=== PATIENT | male | born 1955 | race Caucasian/White ===

== ENCOUNTER 2019-11-12 06:56 | Day surgery (SDC) | payer BC ==
[~2019-11-12 06:56] MED LIST: Lactated Ringers 1,000 ML IV SCH; Lidocaine 1%/Sod Bicarbonate in NS 8.4% 1 ML Syringe IDERM PRN; Sodium Chloride 0.9% 10 ML Syringe FLUSH PRN
[2019-11-12] MEDS ORDERED: Midazolam 1 MG/ML 2 ML SDV ONE (07:14)
[2019-11-12] MEDS ORDERED: Propofol 200 MG/20 ML SDV ONE ×2 (07:14→08:44)
[2019-11-12] MEDS ORDERED: Albuterol 0.083% 2.5 MG/3 ML Neb Soln NEB ONE (07:32)
--- NOTE | 2019-11-12 07:32 | PCM.PREANE ---
Preanesthetic Assessment - Anesthesia/Transfusion/Family Hx Anesthesia History: Prior Anesthesia Without Reaction Family History of Anesthesia Reaction: No Transfusion History: No Prior Transfusion(s) - Review of Systems General: No Symptoms Pulmonary: Other (asthma, current smoker [id number]) Cardiovascular: Other (HTn, heart cath 2012) Gastrointestinal: Other (GERD) Neurological: No Symptoms Other: Reports: Diabetes - Physical Assessment NPO Status Date: 11/11/19 NPO Status Time: 18:00 Weight: 126.2 kg ASA Class: 3 Mental Status: Alert & Oriented x3 Airway Class: Mallampati = 2 Dentition: Reports: Normal Dentition Thyro-Mental Finger Breadths: 3 Mouth Opening Finger Breadths: 3 ROM/Head Extension: Full Lungs: Clear to Auscultation, Normal Respiratory Effort Cardiovascular: Regular Rate, Regular Rhythm - Allergies Allergies/Adverse Reactions: Allergies Allergy/AdvReac Type Severity Reaction Status Date / Time prednisone Allergy Hives Verified 11/09/19 10:26 - Blood Blood Available: No Product(s) Available: None - Anesthesia Plan Pre-Op Medication Ordered: None - Acknowledgements Anesthesia Type Planned: MAC Pt an Appropriate Candidate for the Planned Anesthesia: Yes Alternatives and Risks of Anesthesia Discussed w Pt/Guardian: Yes Pt/Guardian Understands and Agrees with Anesthesia Plan: Yes PreAnesthesia Questionnaire HEENT History: Reports: Impaired Vision, Otitis Media, Other (See Below) Other HEENT History: wears glasses Cardiovascular History: Reports: High Cholesterol, Hypertension, Other (See Below) Other Cardiovascular History: heart catheterization in 2012 for swollen lower extremity. no abnormalities found, no stenting done. Respiratory History: Reports: Asthma Genitourinary History: Reports: Renal Calculus [employer]WORK SUPPORT ANALYST History: Reports: None Musculoskeletal History: Reports: Other (See Below) Other Musculoskeletal History: left meniscus tear, leg cramps Neurological History: Reports: None Psychiatric History: Reports: None Endocrine/Metabolic History: Reports: Diabetes, Type II Hematologic History: Reports: None Immunologic History: Reports: None Oncologic (Cancer) History: Reports: None Dermatologic History: Reports: Eczema, Other (See Below) Other Dermatologic History: left knee cellulitis - Past Surgical History Head Surgeries/Procedures: Reports: None Cardiovascular Surgical History: Reports: None Respiratory Surgical History: Reports: None GI Surgical History: Reports: Colonoscopy, EGD Female Surgical History: Reports: None Male Surgical History: Reports: None Endocrine Surgical History: Reports: None Neurological Surgical History: Reports: None Musculoskeletal Surgical History: Reports: Other (See Below) Other Musculoskeletal Surgeries/Procedures:: bilateral shoulder surgeries with hardware, left total knee replacement Oncologic Surgical History: Reports: None Dermatological Surgical History: Reports: None - SUBSTANCE USE Smoking Status *Q: Former Smoker Recreational Drug Use History: No - HOME MEDS Home Medications: Home Meds Albuterol Sulfate [Albuterol Sulfate Hfa] 2 puff INH Q4H PRN 11/09/19 [History] Budesonide [Pulmicort] 1 dose NEB QID PRN 11/09/19 [History] Codeine/Promethazine [Phenergan with Codeine] 5 ml PO Q4H PRN 11/09/19 [History] Dulaglutide [Trulicity] 0.5 ml SQ WE 11/09/19 [History] Enalapril [Vasotec] 2.5 mg PO DAILY 11/09/19 [History] Gabapentin [Neurontin] 100 mg PO DAILY 11/09/19 [History] Naproxen Sodium [Aleve] 220 mg PO BID PRN 11/09/19 [History] Omeprazole Magnesium [Prilosec Otc] 20 mg PO DAILY PRN 11/09/19 [History] Triamcinolone Acetonide [Triamcinolone Acetonide 0.1% Crm] 1 dose TOP BID [History] atorvaSTATin [Lipitor] 10 mg PO DAILY 11/09/19 [History] metFORMIN HCl [Glucophage] 1,000 mg PO BID 11/09/19 [History] traMADol [Ultram] 50 - 100 mg PO BID PRN 11/09/19 [History] - CURRENT (IN HOUSE) MEDS Current Meds: Current Medications Lactated Ringer's (Ringers, Lactated) 1,000 mls @ 125 mls/hr IV ASDIRECTED MOLINA Stop: 11/12/19 23:00 Lidocaine/Sodium Bicarbonate (Buffered Lidocaine 1% In Ns 8.4%) 0.25 ml IDERM ONETIME PRN PRN Reason: Prior to IV Start Stop: 11/12/19 18:00 Sodium Chloride (Saline Flush) 10 ml FLUSH ASDIRECTED PRN PRN Reason: Keep Vein Open Stop: 11/12/19 18:00 Discontinued Medications Midazolam HCl (Versed 1 Mg/Ml) Confirm Administered Dose 2 mg .ROUTE .STK-MED ONE Stop: 11/12/19 07:15 Propofol (Diprivan 20 Ml) Confirm Administered Dose 400 mg .ROUTE .STK-MED ONE Stop: 11/12/19 07:15
--- NOTE | 2019-11-12 09:01 | PCM48HPAN ---
Post Anesthesia Note - EVALUATION WITHIN 48HRS OF ANESTHETIC Vital Signs in Normal Range: Yes Patient Participated in Evaluation: Yes Respiratory Function Stable: Yes Airway Patent: Yes Cardiovascular Function Stable: Yes Hydration Status Stable: Yes Pain Control Satisfactory: Yes Nausea and Vomiting Control Satisfactory: Yes Mental Status Recovered: Yes Vital Signs: Last Vital Signs Temp 36.9 C 11/12/19 07:20 Pulse 74 11/12/19 07:20 Resp 18 11/12/19 07:20 BP 150/84 H 11/12/19 07:20 Pulse Ox 94 L 11/12/19 07:48
[2019-11-12 09:18] VITALS: BP 125/82; PULSE 78
--- NOTE | 2019-11-12 12:37 | OR ---
DATE OF OPERATION: 11/12/2019 SURGEON: Randall Garcia MD PREPROCEDURE DIAGNOSIS: Surveillance colonoscopy. POSTOPERATIVE DIAGNOSES: 1. Two rectal polyps, removed. 2. Extensive diverticulosis. 3. Grade 3 internal hemorrhoids. OPERATION PERFORMED: Colonoscopy with polypectomy. ESTIMATED BLOOD LOSS: Minimal. COMPLICATIONS: None immediate. INDICATIONS AND CONSENT: The patient is a 64-year-old male who underwent initial colonoscopy in 2005 where some polyps were removed. The patient was asked to follow up colonoscopy, but he has had not a chance to follow up until recently. I saw him in clinic, evaluated him for a surveillance colonoscopy. The patient was doing well otherwise with no other abdominal problems or change in bowel habits. Therefore, recommended to proceed with surveillance colonoscopy. We discussed the risks, benefits, and alternatives. Risks discussed include, but not limited to, perforation and bleeding. The patient understood and agreed to proceed with the procedure. DETAILS OF THE PROCEDURE: The patient was taken to the procedure room, placed in left lateral decubitus position. Following induction of monitored anesthesia, we began the exam with a perianal exam. Upon examination of anal opening, we saw 1 hemorrhoidal complex that was protruding through the anal canal, signifying grade 3 internal hemorrhoids. There were no fissures. Digital rectal exam was otherwise normal except for the hemorrhoids. Then, the scope was placed and advanced all the way to the cecum. The appendiceal orifice and ileocecal valve were photographed. Then, careful colonic examination was done while slowly withdrawing the colonoscope. There was scattered diverticulosis in the transverse colon and there was extensive diverticulosis in the sigmoid colon. Once we got to the rectum, we found 2 small polyps, one was about 2 mm and the other one was about 4 mm. These were removed with cold forceps for pathologic examination. Once again, upon retroflexion of the rectum, we confirmed presence of internal hemorrhoids. Then, the air was suctioned out of the colon and the colonoscope was removed. This marked the end of the procedure. EBL was minimal, and the patient was awoken up and taken to the PACU for further recovery. The patient will come back in clinic in 2 weeks to discuss pathologic results and plan for further followup. [facility] /[id number]
== END 2019-11-12 09:46 | disposition home or self-care (01) ==
LOC: JD.SDS 06:56
PROVIDERS: ATTEND Surgery
DX: Z12.11 Encounter for screening for malignant neoplasm of colon (principal); K62.1 Rectal polyp; K57.30 Diverticulosis of large intestine without perforation or abscess without bleeding; K64.8 Other hemorrhoids; K21.9 Gastro-esophageal reflux disease without esophagitis; M19.90 Unspecified osteoarthritis, unspecified site; J45.909 Unspecified asthma, uncomplicated; I10 Essential (primary) hypertension; E11.9 Type 2 diabetes mellitus without complications; E78.00 Pure hypercholesterolemia, unspecified; F17.210 Nicotine dependence, cigarettes, uncomplicated; Z79.899 Other long term (current) drug therapy; Z88.8 Allergy status to other drugs, medicaments and biological substances
CPT/HCPCS: 45380; 82962; 93005; 94640; J2250; J2704; J7120; 00812

== ENCOUNTER 2024-11-26 11:52 | Emergency (ER) | payer MEDICARE, OTHER ==
[2024-11-26] MEDS ORDERED: Sodium Chloride 0.9% 10 ML Syringe FLUSH PRN (12:17)
[2024-11-26 12:39] LABS: BASOPHILS PERCENT AUTO 0.4 % (0.0-1.0); EOSINOPHILS ABSOLUTE AUTO 0.3 K/mm3 (0.0-0.4); EOSINOPHILS PERCENT AUTO 3.1 % (0.0-6.0); HEMOGLOBIN 14.7 gm/dl (14.0-18.0); IMMATURE GRAN ABSOLUTE AUTO 0.03 K/mm3 (0.00-0.05); IMMATURE GRAN PERCENT AUTO 0.3 % (0.0-0.4); LYMPHOCYTES ABSOLUTE AUTO 2.7 K/mm3 (1.0-4.8); LYMPHOCYTES PERCENT AUTO 29.6 % (24.0-44.0); MEAN CORPUSCULAR HEMOGLOBIN 29.8 pg (28.0-32.0); MEAN CORPUSCULAR HGB CONC 32.7 g/dl (32.0-36.0); MEAN CORPUSCULAR VOLUME 91.1 fl (83.0-99.0); MEAN PLATELET VOLUME 10.3 fl (9.4-12.4); MONOCYTES ABSOLUTE AUTO 0.6 K/mm3 (0.0-0.8); MONOCYTES PERCENT AUTO 6.5 % (0.0-8.0); NEUTROPHILS ABSOLUTE AUTO 5.5 K/mm3 (1.8-7.7); NEUTROPHILS PERCENT AUTO 60.1 % (41.0-71.0); PLATELET COUNT,PLT 244 K/mm3 (150-400); RED BLOOD CELL COUNT 4.94 M/mm3 (4.52-5.90); WHITE BLOOD CELL COUNT,WBC 9.17 K/mm3 (3.9-11.3)
[2024-11-26 12:59] LABS: ALBUMIN 3.5 g/dl (3.4-5.0); ANION GAP 15.3 (5-15); BILIRUBIN TOTAL 0.3 mg/dL (0.2-1.0); BUN/CREATININE RATIO 16.4 (14-18); C-REACTIVE PROTEIN 0.54 mg/dL (<0.30); CALCIUM 9.2 mg/dL (8.5-10.1); CREATININE 1.1 mg/dL (0.7-1.3); EST CRCL DRUG DOSING (CG) 59.26 mL/min; POTASSIUM,K 4.3 mEq/L (3.5-5.1)
[2024-11-26] MEDS: Iopamidol 612 MG/ML 100 ML Bottle IVPUSH ONE (13:18)
[2024-11-26] MEDS: Sodium Chloride 0.9% 10 ML Syringe FLUSH PRN (13:18)
[2024-11-26] MEDS: Iopamidol 612 MG/ML 30 ML SDV IUTERINE ONE (13:18)
[2024-11-26 13:43] VITALS: BP 109/56; PULSE 70
[2024-11-26] MEDS: Iopamidol 612 MG/ML 30 ML SDV IVPUSH ONE (13:45)
[2024-11-26 13:50] LABS: APPEARANCE,URINE CLEAR (Clear); BILIRUBIN,URINE NEGATIVE (Negative); COLOR,URINE YELLOW (Yellow); GLUCOSE,URINE 2+ (Negative); KETONES,URINE NEGATIVE (Negative); LEUKOCYTE ESTERASE,URINE NEGATIVE (Negative); NITRITE,URINE NEGATIVE (Negative); OCCULT BLOOD,URINE NEGATIVE (Negative); PROTEIN,URINE NEGATIVE (Negative); UROBILINOGEN,URINE 0.2 (0.2-1.0)
== END 2024-11-26 14:13 | disposition home or self-care (01) ==
LOC: JD.ED 11:52
DX: R10.12 Left upper quadrant pain (principal); I10 Essential (primary) hypertension; E78.00 Pure hypercholesterolemia, unspecified; E11.9 Type 2 diabetes mellitus without complications; Z79.84 Long term (current) use of oral hypoglycemic drugs; Z79.899 Other long term (current) drug therapy; Z88.8 Allergy status to other drugs, medicaments and biological substances
CPT/HCPCS: 36415; 74177; 80053; 81003; 83690; 85025; 86140; 99284; Q9967; 99283